=== PATIENT | female | born 1995 | race Caucasian/White ===

== ENCOUNTER 2017-06-30 14:36 | Day surgery (SDC) | payer OTHER ==
[2017-06-29 10:56] VITALS: Ht 157.5 cm; Wt 67.3 kg
[~2017-06-30] VITALS: Ht 157.5 cm; Wt 67.3 kg
[2017-06-30] VITALS (12 sets, daily range): BP systolic 95–109; BP diastolic 45–64; PULSE 74–106; RESP 13–23
[~2017-06-30 14:36] MED LIST: LACTATED RINGER'S 1,000 ML IV* SCH
[2017-06-30] MEDS ORDERED: TERB250T9 PO (14:57)
[2017-06-30] MEDS ORDERED: BUPIVACAINE 0.5% (SDV) 30 ML INJ ONE (15:37)
[2017-06-30] MEDS ORDERED: POLYMYXIN/BACITRACIN 1L IRRIG ONE (15:39)
[2017-06-30] MEDS ORDERED: PROPOFOL 20 ML ONE (15:56)
[2017-06-30] MEDS ORDERED: MIDAZOLAM 1 MG/ML 2 ML INJ ONE (15:57)
[2017-06-30] MEDS ORDERED: FENTAnyl 50 MCG/ML VIAL ONE (15:57)
--- NOTE | 2017-06-30 16:00 | HPN ---
Date/Time of Note Date/Time of Note DATE: 06/30/17 TIME: 16:00 Interval H&P Admission Note Pt. seen H&P reviewed: No system changes LUIS ANGEL JAMES Jun 30, 2017 16:00
[2017-06-30] MEDS ORDERED: CEFAZOLIN 1 GM INJ ONE (16:23)
[2017-06-30] MEDS ORDERED: KETOROLAC 30 MG INJ ONE (16:23)
[2017-06-30] MEDS ORDERED: ONDANSETRON 4 MG INJ ONE (16:23)
[2017-06-30] MEDS ORDERED: METOCLOPRAMIDE 10 MG INJ ONE (16:23)
[2017-06-30] MEDS ORDERED: DEXAMETHASONE 4 MG/ML 1 ML INJ ONE (16:23)
[2017-06-30] MEDS ORDERED: EPHEDrine SULFATE 50 MG/5 ML SYG IV PRN (16:30)
[2017-06-30] MEDS ORDERED: MEPERIDINE 25 MG INJ IV PRN (16:30)
[2017-06-30] MEDS ORDERED: FENTAnyl 50 MCG/ML VIAL IV PRN ×3 (16:30)
[2017-06-30] MEDS ORDERED: morphine (1 MG/ML) 10ML SYRINGE IV PRN ×2 (16:30)
[2017-06-30] MEDS ORDERED: DIPHENHYDRAMINE 50 MG INJ IV PRN (16:30)
[2017-06-30] MEDS ORDERED: METOCLOPRAMIDE 10 MG INJ IV PRN (16:30)
[2017-06-30] MEDS ORDERED: ONDANSETRON 4 MG INJ IV PRN (16:30)
--- NOTE | 2017-06-30 17:09 | OPPN ---
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
--- NOTE | 2017-06-30 18:21 | OPR ---
DATE OF OPERATION: 06/30/2017 SURGEON: Tyson Martínez MD ANESTHESIA: General. PREOPERATIVE DIAGNOSIS: Left wrist dorsal ganglion. POSTOPERATIVE DIAGNOSIS: Left wrist dorsal ganglion. OPERATION PERFORMED: Excision of left wrist dorsal ganglion. OPERATIVE FINDINGS AT SURGERY: Left wrist dorsal ganglion at the lunotriquetral interval. INDICATION FOR PROCEDURE: A 22-year-old female with longstanding left wrist dorsal ganglion which was painful for her. She failed conservative management, elected to proceed with surgical intervention understanding the risks and benefits. OPERATIVE PROCEDURE: Patient was seen in the preoperative area and all further questions were answered. Again, she gave informed consent understanding the risks and benefits. She was taken the operative suite, and placed in supine position. She was placed under general anesthesia and tourniquet placed on left upper extremity. Ancef 2 grams IV given and left upper extremity was prepped with ChloraPrep stick and draped in usual sterile fashion. Esmarch bandage was used to exsanguinate the extremity and tourniquet inflated to 250 mmHg. A transverse incision over the dorsal left wrist was utilized with sharp dissection carried down through skin and subcutaneous tissue. Scissor dissection revealed the ganglion cyst which was between the 4th and 5th dorsal compartments arising from the lunotriquetral interval. The ganglion cyst was circumferentially dissected around and the 4th and 5th dorsal compartment tendons were protected. The cyst was excised down to its stump which was at the lunotriquetral interval. A small portion of the joint capsule was excised with the ganglion cyst. The wound was copiously irrigated. Skin closed with 4-0 nylon. Xeroform placed on the wound followed by sterile gauze, Webril, and a short-arm splint. Tourniquet deflated after 13 minutes and patient was awakened from anesthesia. She was taken to the postoperative suite in stable condition. Tolerated the procedure well without complications. SPECIMENS: None. ESTIMATED BLOOD LOSS: 5 mL. COUNTS: Sponge, instrument, and needle counts correct. TOURNIQUET TIME: 13 minutes. CONDITION ON DISCHARGE: Stable. Dictated By: Tyson Martínez MD /lori/bushra Perez#: [id number]/Document#: [id number] MICHELLE
== END 2017-06-30 17:42 | disposition home or self-care (01) ==
LOC: SDS 14:36
PROVIDERS: ATTEND Orthopaedic Surgery Hand Surgery
DX: M67.432 Ganglion, left wrist (principal)
CPT/HCPCS: 25111; 84703; J0690; J1100; J1885; J2175; J2250; J2405; J2765; J3010; Z7610; C1713